=== PATIENT | male | born 1940 | race Caucasian/White ===

== ENCOUNTER → 2017-12-16 | Outpatient (CLI) | payer MEDICARE, OTHER ==
[~2017-12-16] MED LIST: ACETAMINOPHEN650 M5 PO; ALEVE220 M1 PO; ALEVE220 MG PO; ARICEPT10 M1 PO; CRESTOR10 MG PO; CRESTOR5 MG PO; LEXAPRO 10 MG T10 M2 PO; LEXAPRO20 MG PO; NORCO 5-325 TA1 EACH PO; PRILOSEC; PRILOSEC 20 MG20 MG PO; VITAMIN B COMP1 EAC7 PO; ZOFRAN 4 MG ORAL4 M1 DIS
== END ==
LOC: M.RAD 10:08
DX: M47.814 Spondylosis without myelopathy or radiculopathy, thoracic region (principal); M41.84 Other forms of scoliosis, thoracic region; R06.02 Shortness of breath

== ENCOUNTER → 2017-12-21 | Outpatient (CLI) | payer MEDICARE, OTHER ==
--- NOTE | 2017-12-24 09:44 | PF ---
[address] [address] PULMONARY FUNCTION REPORT Name: ILANA CABRALES Room: [facility]#: [id number] Admission: 12/21/17 Attend Phys: Lupe Siegel MD Discharge: Date of : 42 Report #: [id number] THIS REPORT FOR: //name// CC: Lupe Siegel REFERRING PHYSICIAN: Lupe Siegel MD SPIROMETRY: The FEV1/FVC ratio was 68% predicted. The FEV1 post-bronchodilator was 3.2 liters at 86% of predicted. The forced vital capacity was 5.06 liters at 99% predicted. The FEF 25-75 flow rate was reduced at 48% predicted. The test did not meet the criteria for positive bronchodilator response. Total lung capacity was 7.12 liters at 87% predicted. DLCO was 89% predicted. IMPRESSION: The above pulmonary function test demonstrates obstructive pulmonary defect of mild degree with no positive bronchodilator response. DLCO was normal. <ELECTRONICALLY SIGNED> By: George Mclean MD 12/24/17 0944 [id number] Mclean MD /nt
== END ==
LOC: M.PUL 10:30 → M.CT 12:23 → M.PUL 13:00 → M.CT 13:30
DX: G93.89 Other specified disorders of brain (principal); Z98.2 Presence of cerebrospinal fluid drainage device; Z86.69 Personal history of other diseases of the nervous system and sense organs

== ENCOUNTER → 2018-03-17 | Outpatient (CLI) | payer MEDICARE, OTHER | LOC: M.CT 09:05 | DX: I25.10 Atherosclerotic heart disease of native coronary artery without angina pectoris (principal); R59.0 Localized enlarged lymph nodes; R06.02 Shortness of breath; E78.00 Pure hypercholesterolemia, unspecified; K21.9 Gastro-esophageal reflux disease without esophagitis; E78.5 Hyperlipidemia, unspecified ==

== ENCOUNTER 2019-07-26 13:46 | Inpatient (IN) | payer OTHER ==
[~2019-07-26] VITALS: Ht 182.9 cm; Wt 113.4 kg
[~2019-07-26 13:46] MED LIST changes: -PRILOSEC 20 MG20 MG PO; +PRILOSEC OTC20 MG PO
[2019-07-26 13:56] VITALS: BP 145/67
[2019-07-26] MEDS ORDERED: PROZAC 10 MG CA10 MG PO (13:59)
[2019-07-26] MEDS ORDERED: COLESTID5 GM PO (14:00)
[2019-07-26 15:37] LABS: ABSOLUTE BASOPHILS 0.1 thou/uL (0.0-0.2); ABSOLUTE EOSINOPHILS 0.1 thou/uL (0.0-0.7); ABSOLUTE LYMPHOCYTES 1.4 thou/uL (0.8-5.3); ABSOLUTE MONOCYTES 0.7 thou/uL (0.0-1.2); ABSOLUTE NEUTROPHILS 5.3 thou/uL (1.6-8.1); BASOPHILS 0.8 %; EOSINOPHILS 1.6 %; HEMATOCRIT 37.6 % (42.0-52.0); HEMOGLOBIN 12.6 gm/dL (14.0-18.0); LYMPHOCYTES 18.7 %; MCH 29.5 pg (26.0-34.0); MCHC 33.6 g/dL (28.0-37.0); MCV 87.8 fL (80.0-100.0); MONOCYTES 8.9 %; MPV 7.5 fl. (7.2-11.1); NUCLEATED RBCS 0 /100WBC; PLATELET COUNT* 216 thou/uL (150-400); RBC 4.29 mil/uL (4.50-6.00); RDW-CV 13.6 % (10.5-14.5); WBC 7.6 thou/uL (4.0-11.0)
[2019-07-26 15:45] LABS: CALCIUM 7.7 mg/dL (8.5-10.1); CREATININE 1.3 mg/dL (0.6-1.3); POTASSIUM 4.1 mmol/L (3.5-5.1)
[2019-07-26 15:49] LABS: ALBUMIN 3.5 g/dL (3.4-5.0); TOTAL BILIRUBIN 0.4 mg/dL (<0.1-1.0); TOTAL PROTEIN 6.6 g/dL (6.4-8.2)
--- NOTE | 2019-07-26 17:56 | NUR ---
REGULAR DIET DINNER TRAY ORDERED FOR THE PATIENT AND REQUESTED IT BE SENT TO ROOM #108 THAT WILL BE THE ROOM THE PATIENT IS ADMITTED TO.
[2019-07-26 18:17] VITALS: BP 132/71
[2019-07-26 19:50] VITALS: BP 140/59
[2019-07-27 01:44] LABS: URINE BILIRUBIN NEGATIVE (Negative); URINE BLOOD NEGATIVE (Negative); URINE CLARITY CLEAR; URINE COLOR DARK YELLOW; URINE GLUCOSE-RANDOM 2+ (Negative); URINE KETONES NEGATIVE (Negative); URINE LEUKOCYTES NEGATIVE (Negative); URINE NITRITE NEGATIVE (Negative); URINE PROTEIN NEGATIVE (Negative); URINE SPECIFIC GRAVITY >= 1.030 (1.005-1.030); URINE UROBILINOGEN 0.2 E.U./dl (0.2-1.0)
[2019-07-27 03:59] LABS: HEMATOCRIT 36.4 % (42.0-52.0); HEMOGLOBIN 12.3 gm/dL (14.0-18.0); MCH 29.6 pg (26.0-34.0); MCHC 33.7 g/dL (28.0-37.0); MCV 88.1 fL (80.0-100.0); MPV 7.9 fl. (7.2-11.1); NUCLEATED RBCS 0 /100WBC; PLATELET COUNT* 192 thou/uL (150-400); RBC 4.14 mil/uL (4.50-6.00); RDW-CV 13.7 % (10.5-14.5)
[2019-07-27 04:13] LABS: CALCIUM 8.3 mg/dL (8.5-10.1); CREATININE 1.2 mg/dL (0.6-1.3); POTASSIUM 4.3 mmol/L (3.5-5.1)
[2019-07-27 05:46] LABS: ABSOLUTE LYMPHOCYTES 0.2 thou/uL (0.8-5.3); ABSOLUTE NEUTROPHILS 5.8 thou/uL (1.6-8.1)
--- NOTE | 2019-07-27 05:46 | NUR ---
ASSUMED CARE OF PATIENT AT APPROX 1930. ALERT AND ORIENTED X4. ASSESSMENT COMPLETED AND CHARTED. VSSON ROOM AIR. FLUIDS STARTED AND INFUSING ORDERED. PAIN MANAGED WITH ORAL AND IV PAIN MEDICATIONS. PATIENT UP STAND BY ASSIST TO USE THE BATHROOM. NO OTHER COMPLAINTS THIS SHIFT. FALL PRECAUTIONS IN PLACE. CALL LIGHT WITHIN REACH. HOURLY ROUNDS COMPLETED. WILL CONTINUE WITH PLAN OF CARE.
[2019-07-27 05:48] LABS: PLATELET ESTIMATE ADEQUATE
[2019-07-27 05:49] LABS: ANISOCYTOSIS 1+; POIKILOCYTOSIS 1+
[2019-07-27 08:00] VITALS: BP 136/53
[2019-07-27] MEDS ORDERED: NORCO 5-325 TA1 EAC1 PO (10:00)
[2019-07-27 12:44] VITALS: BP 136/53
--- NOTE | 2019-07-27 18:53 | NUR ---
ORDER RECEIVED TO DISCHARGE PATINET HOME TO SELF CARE. MED REC, MEDICATION EDCUATION, STROKE EDUCATION, ADN NEED FOR FOLLOW UP APPOINTMNETS COVERED WITH PATIENT AND STATED UNDERSTOOD. IV DC'D. HOURY ROUNDING COMPLETED DURING PATINET STAY FOR PATIENT SAFETY. PATIENT CHOSE TO AMBULATE TO CAR WITH SPOUSE PRESENT AND WITH NURSING STAFF. DC TIME OF 14:40.
== END 2019-07-27 14:56 | disposition home or self-care (01) | DRG 184 ==
LOC: M.ERS 13:46 → M.ORTHSURG 16:25 → M.TBA-ER 16:25 → M.ORTHSURG 18:30
PROVIDERS: Emergency Medicine; Physician Assistant; ADMIT Internal Medicine
DX: S22.49XA Multiple fractures of ribs, unspecified side, initial encounter for closed fracture (principal); J98.11 Atelectasis; E78.00 Pure hypercholesterolemia, unspecified; F32.9 Major depressive disorder, single episode, unspecified; K21.9 Gastro-esophageal reflux disease without esophagitis; W18.39XA Other fall on same level, initial encounter; Y93.89 Activity, other specified; Y92.89 Other specified places as the place of occurrence of the external cause; Y99.8 Other external cause status

== ENCOUNTER → 2019-08-21 | Outpatient (CLI) | payer OTHER ==
[~2019-08-21] MED LIST changes: +COLESTID5 GM PO; +NORCO 5-325 TA1 EAC1 PO; +PROZAC 10 MG CA10 MG PO
[2019-08-21 08:43] LABS: ABSOLUTE BASOPHILS 0.1 thou/uL (0.0-0.2); ABSOLUTE EOSINOPHILS 0.1 thou/uL (0.0-0.7); ABSOLUTE LYMPHOCYTES 1.2 thou/uL (0.8-5.3); ABSOLUTE MONOCYTES 0.5 thou/uL (0.0-1.2); ABSOLUTE NEUTROPHILS 4.1 thou/uL (1.6-8.1); BASOPHILS 1.9 %; EOSINOPHILS 2.4 %; HEMATOCRIT 42.2 % (42.0-52.0); HEMOGLOBIN 14.2 gm/dL (14.0-18.0); LYMPHOCYTES 18.9 %; MCH 29.3 pg (26.0-34.0); MCHC 33.7 g/dL (28.0-37.0); MCV 86.7 fL (80.0-100.0); MONOCYTES 8.7 %; MPV 6.7 fl. (7.2-11.1); NUCLEATED RBCS 0 /100WBC; PLATELET COUNT* 232 thou/uL (150-400); POLYS 68.1 %; RBC 4.86 mil/uL (4.50-6.00); RDW-CV 14.3 % (10.5-14.5); WBC 6.1 thou/uL (4.0-11.0)
[2019-08-21 08:57] LABS: ALBUMIN 3.4 g/dL (3.4-5.0); CALCIUM 8.4 mg/dL (8.5-10.1); POTASSIUM 4.2 mmol/L (3.5-5.1); TOTAL BILIRUBIN 0.5 mg/dL (<0.1-1.0); TOTAL PROTEIN 6.9 g/dL (6.4-8.2)
[2019-08-21 09:38] LABS: ESR (SEDRATE) 18 mm/hr (0-20)
== END ==
LOC: M.LAB 08:19
PROVIDERS: Psychiatry & Neurology Neuromuscular Medicine
DX: G91.9 Hydrocephalus, unspecified (principal); R26.9 Unspecified abnormalities of gait and mobility; R41.3 Other amnesia

== ENCOUNTER → 2019-08-24 | Outpatient (CLI) | payer OTHER | LOC: M.CT 10:36 | DX: G91.9 Hydrocephalus, unspecified (principal); R26.9 Unspecified abnormalities of gait and mobility; R41.3 Other amnesia ==

== ENCOUNTER → 2020-10-02 | Outpatient (CLI) | payer OTHER | LOC: M.CT 09:05 | PROVIDERS: ATTEND Family Medicine | DX: R06.02 Shortness of breath (principal); Z77.090 Contact with and (suspected) exposure to asbestos; Z87.891 Personal history of nicotine dependence ==

== ENCOUNTER → 2020-11-06 | Outpatient (CLI) | payer OTHER ==
[~2020-11-06] MED LIST changes: +SUPER B-50 COM1 EACH PO; +VITAMIN E1000 UNIT PO
[2020-11-06 08:43] LABS: HEMATOCRIT 38.9 % (42.0-52.0); HEMOGLOBIN 12.6 gm/dL (14.0-18.0); MCH 26.9 pg (26.0-34.0); MCHC 32.4 g/dL (28.0-37.0); MCV 83.2 fL (80.0-100.0); MPV 6.9 fl. (7.2-11.1); RBC 4.67 mil/uL (4.50-6.00); RDW-CV 14.9 % (10.5-14.5)
[2020-11-06 08:57] LABS: ANION GAP 8 mmol/L (7-16); BUN 18 mg/dL (7-18); CALCIUM 8.6 mg/dL (8.5-10.1); CHLORIDE 105 mmol/L (98-107); CHOLESTEROL 174 mg/dL (<200); CO2 29 mmol/L (21-32); CREATININE 1.1 mg/dL (0.6-1.3); GLUCOSE 101 mg/dL (70-99); HDL CHOLESTEROL 57 mg/dL (>40); LDL CHOLESTEROL 106 mg/dL (<100); POTASSIUM 4.5 mmol/L (3.5-5.1); SODIUM 142 mmol/L (136-145); TC:HDL 3.1 Ratio (Not establshd); TRIGLYCERIDE 58 mg/dL (<150); VLDL 12 mg/dL (<40)
[2020-11-06 08:58] LABS: SERUM ASSESSMENT Clear
== END ==
LOC: M.LAB 08:31
PROVIDERS: ATTEND Registered Nurse
DX: I77.810 Thoracic aortic ectasia (principal); E78.00 Pure hypercholesterolemia, unspecified; R06.00 Dyspnea, unspecified

== ENCOUNTER → 2020-11-27 | Outpatient (CLI) | payer OTHER ==
--- NOTE | 2020-11-27 09:22 | 2DMMODE ---
[place] [address] 2 D/M-MODE ECHOCARDIOGRAM Name: ILANA CABRALES Room: [facility]#: [id number] Admission: 11/27/20 Attend Phys: José Manuel Cole, Discharge: Date of : 42 Date of Service: 11/27/20 0922 Report #: [id number] THIS REPORT FOR: cc: Lupe Siegel MD, Katrina MD Holkins,Reza Lopez MD [facility] ~ APPROVED REPORT Study performed: 11/27/2020 07:44:59 EXAM: Comprehensive 2D, Doppler, and color-flow Echocardiogram Patient Location: Out-Patient BSA: 2.46 HR: 61 bpm BP: 120/70 mmHg Other Information Study Quality: Good Indications Dyspnea 2D Dimensions IVSd: 11.20 (7-11mm) LVOT Diam: 21.09 (18-24mm) LVDd: 46.39 mm PWd: 11.20 (7-11mm) Ascending Ao: 36.99 (22-36mm) LVDs: 25.09 (25-40mm) Aortic Root: 30.67 mm Volumes Left Atrial Volume (Systole) LA ESV Index: 14.90 mL/m2 Aortic Valve AoV Peak Rojas.: 1.06 m/s AO Peak Gr.: 4.47 mmHg LVOT Max P.28 mmHg AO Mean Gr.: 2.64 mmHg LVOT Mean P.37 mmHg LVOT Max V: 0.91 m/s AO V2 VTI: 19.91 cm LVOT Mean V: 0.52 m/s BERNARDO (VTI): 2.90 cm2 LVOT V1 VTI: 16.52 cm Mitral Valve E/A Ratio: 0.54 [place] [address] 2 D/M-MODE ECHOCARDIOGRAM Name: ILANA CABRALES [id number] Admission: 11/27/20 Attend Phys: José Manuel Cole, Discharge: Date of : 42 Date of Service: 11/27/20 0922 Report #: [id number] MV Decel. Time: 194.76 ms MV E Max Rojas.: 0.49 m/s MV PHT: 56.48 ms MVA (PHT): 3.90 cm2 TDI E/Lateral E': 6.13 E/Medial E': 7.00 Medial E' Rojas.: 0.07 m/s Lateral E' Rojas.: 0.08 m/s Pulmonary Valve PV Peak Rojas.: 1.01 m/s PV Peak Gr.: 4.12 mmHg Tricuspid Valve RAP Estimate: 5.00 mmHg TR Peak Gr.: 22.49 mmHg RVSP: 27.49 mmHg PA Pressure: 27.49 mmHg Left Ventricle The left ventricle is normal size. There is normal LV segmental wall motion. There is normal left ventricular wall thickness. Left ventricular systolic function is normal. The left ventricular ejection fraction is within the normal range. LVEF is 55-60%. Grade I - abnormal relaxation pattern. Right Ventricle The right ventricle is normal size. The right ventricular systolic function is normal. Atria The left atrium size is normal. The right atrium size is normal. Aortic Valve The aortic valve is normal in structure. No aortic regurgitation is present. There is no aortic valvular stenosis. Mitral Valve The mitral valve is normal in structure. There is no mitral valve regurgitation noted. No evidence of mitral valve stenosis. Tricuspid Valve The tricuspid valve is normal in structure. Mild tricuspid regurgitation. [place] [address] 2 D/M-MODE ECHOCARDIOGRAM Name: ELMA CABRALESToo Valencia Room: [facility]#: [id number] Admission: 11/27/20 Attend Phys: José Manuel Cole, Discharge: Date of : 42 Date of Service: 11/27/20 0922 Report #: [id number] The pulmonary valve is normal in structure. There is no pulmonic valvular regurgitation. Great Vessels The aortic root is normal in size. IVC is normal in size and collapses >50% with inspiration. Pericardium There is no pericardial effusion. <Conclusion> The left ventricle is normal size. There is normal left ventricular wall thickness. Left ventricular systolic function is normal. The left ventricular ejection fraction is within the normal range. LVEF is 55-60%. Grade I - abnormal relaxation pattern. The right ventricle is normal size. The left atrium size is normal. The aortic valve is normal in structure. The mitral valve is normal in structure. The tricuspid valve is normal in structure. Mild tricuspid regurgitation. IVC is normal in size and collapses >50% with inspiration. There is no pericardial effusion. There is normal LV segmental wall motion. <ELECTRONICALLY SIGNED> By: Reza Barber MD, FACC 11/27/20921 1 1 Reza Barber MD, FACC /INF
== END ==
LOC: M.CRD 11-11 09:46
PROVIDERS: ATTEND Internal Medicine Cardiovascular Disease
DX: I07.1 Rheumatic tricuspid insufficiency (principal); R06.00 Dyspnea, unspecified; R06.02 Shortness of breath; I77.810 Thoracic aortic ectasia; I37.1 Nonrheumatic pulmonary valve insufficiency